=== PATIENT | female | born 1935 | race Caucasian/White ===

== ENCOUNTER → 2017-09-20 | Outpatient (RCR) | payer MEDICARE ==
[~2017-09-20] MED LIST: ALPRAZOLAM0.25 MG; AMLODIPINE BESY10 MG; AMLODIPINE BESYL5 MG PO; ASPIRIN81 MG PO; ATORVASTATIN CA20 MG PO; BENICAR; BENICAR20 MG PO; BYSTOLIC10 MG; BYSTOLIC10 MG PO; CARVEDILOL12.5 MG PO; CIPRO500 MG PO; CLOPIDOGREL75 MG PO; GLIMEPIRIDE4 MG; GLIMEPIRIDE4 MG PO; HYDROCHLOROTHIA25 MG; LANTUS100 UNITS/; METFORMIN HCL500 MG; UNISOM SLEEP AI25 MG; clonidine
== END ==
LOC: PT 09-13 09:52
PROVIDERS: ATTEND Psychiatry & Neurology Neurology
DX: M54.81 Occipital neuralgia (principal); M53.82 Other specified dorsopathies, cervical region; M62.81 Muscle weakness (generalized); R53.81 Other malaise
CPT/HCPCS: 97110 ×3; 97161; G8978; G8979

== ENCOUNTER → 2017-10-18 | Outpatient (RCR) | payer MEDICARE | LOC: PT 09-22 09:52 | PROVIDERS: ATTEND Psychiatry & Neurology Neurology | DX: M54.81 Occipital neuralgia (principal) | CPT/HCPCS: 97110 ×9; 97139; G8978; G8979 ==

== ENCOUNTER 2017-10-26 13:52 | Outpatient (RCR) | payer MEDICARE ==
[~2017-10-26 13:52] MED LIST changes: -LANTUS100 UNITS/; +LANTUS100 UNITS/ SQ
[2017-12-29] MEDS ORDERED: CARVEDILOL12.5 MG PO (09:13)
[2017-12-29] MEDS ORDERED: CLONIDINE HCL0.1 MG PO (09:14)
[2017-12-29] MEDS ORDERED: UNISOM PO (09:15)
[2017-12-29] MEDS ORDERED: UNISOM SLEEP AI25 MG (09:15)
[2017-12-29] MEDS ORDERED: PRESERVISION A1 EACH PO (09:16)
[2017-12-29] MEDS ORDERED: CENTRUM SILVER1 EAC3 PO (09:16)
== END 2017-11-18 ==
LOC: PT 13:52
PROVIDERS: ATTEND Psychiatry & Neurology Neurology
DX: M54.81 Occipital neuralgia (principal); R53.81 Other malaise; M62.81 Muscle weakness (generalized); R26.2 Difficulty in walking, not elsewhere classified; M53.82 Other specified dorsopathies, cervical region
CPT/HCPCS: 97139

== ENCOUNTER → 2017-11-14 | Outpatient (CLI) | payer MEDICARE ==
[~2017-11-14] MED LIST changes: +LANTUS100 UNITS/; -LANTUS100 UNITS/ SQ
--- NOTE | 2017-11-14 15:11 | Diagnostic Imaging Report ---
Exam: Brain MRI without IV contrast History: Vertigo, dizziness Comparison studies: None Technique: Sagittal and axial T2, axial DWI, axial coronal T2 flair, axial T2*GRE and axial T1 FLAIR. Intravenous contrast: None Findings: Scalp: Normal in signal. No masses. Bone marrow: Normal in signal intensity. Brain sulci: Appropriate for age. Ventricles: Normal in size. No hydrocephalus. Extra-axial spaces: No mass, no fluid collection. Parenchyma: No mass, hemorrhage or acute ischemia. Scattered discrete and mildly confluent-appearing periventricular T2 FLAIR hyperintense signal changes in the supratentorial white matter are nonspecific but most compatible with chronic small vessel ischemic changes (Fazekas Grade 2). Suprasellar region: No abnormalities. Craniocervical junction: Patent foramen magnum. No Chiari malformation. Vessels: Absence of the normal signal void within the left V3 and mid and proximal intradural V4 segments of the left vertebral artery. Additionally there is increased T1 and T2 FLAIR signal within the vertebral artery at the level of the left C1 transverse foramen. Findings may be secondary to flow-related artifact within a hypoplastic vessel, related to flow-limiting stenosis or reflect vessel occlusion. Normal flow-voids in the remaining major intracranial arteries and sinuses. IMPRESSION: 1. Mild to moderate supratentorial chronic microvascular ischemic changes. 2. 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 Cervical and intracranial CTA or MRA could further evaluate. 3. No additional intracranial abnormalities. Signed by: Dr. Doug Pavon M.D. on 11/14/2017 3:07 PM
== END ==
LOC: MRI 13:21
PROVIDERS: ATTEND Internal Medicine
DX: H81.49 Vertigo of central origin, unspecified ear (principal)
CPT/HCPCS: 70551

== ENCOUNTER → 2017-11-22 | Outpatient (CLI) | payer MEDICARE ==
[~2017-11-22] MED LIST changes: +CENTRUM SILVER1 EAC3 PO; +CLONIDINE HCL0.1 MG PO; -LANTUS100 UNITS/; +LANTUS100 UNITS/ SQ; +PRESERVISION A1 EACH PO; +UNISOM PO
--- NOTE | 2017-11-22 12:22 | Diagnostic Imaging Report ---
Exam: Intracranial MRA: History: Dizziness, vertigo Technique: Axial 3-D [id number] with coronal, sagittal and 3-D MIP reformats. Comparison studies: Brain MRI 11/14/2017. Findings: Internal carotid arteries: Patent. No flow signal abnormalities. Anterior cerebral arteries: Patent, no flow signal abnormalities in the A1 and proximal A2 segments. Middle cerebral arteries: Patent, no flow signal abnormalities in the M1 and proximal M2 segments. Included intradural V4 segments of the vertebral arteries: Patent, no flow signal abnormalities on the right. The nondominant intradural V4 segment of the left vertebral artery is visualized distal to the left PICA but is not visualized more proximally. Anatomical variants: Acom: Visualized. Pcoms: Visualized bilaterally. Vertebral arteries: Right is dominant. IMPRESSION: 1. Intradural V4 segment of the left vertebral artery is patent distal to the PICA but not visualized more proximally. Cannot further evaluate on this exam. Cervical CTA or MRA could further evaluate for the possibility of a more proximal vessel occlusion. 2. No additional intracranial MR abnormalities. Signed by: Dr. Doug Pavon M.D. on 11/22/2017 12:18 PM
== END ==
LOC: MRI 10:25
PROVIDERS: ATTEND Internal Medicine
DX: H81.49 Vertigo of central origin, unspecified ear (principal)
CPT/HCPCS: 70544

== ENCOUNTER → 2017-12-01 | Outpatient (CLI) | payer MEDICARE ==
[~2017-12-01] MED LIST changes: -CENTRUM SILVER1 EAC3 PO; -CLONIDINE HCL0.1 MG PO; +LANTUS100 UNITS/; -LANTUS100 UNITS/ SQ; -PRESERVISION A1 EACH PO; -UNISOM PO
--- NOTE | 2017-12-01 16:31 | Diagnostic Imaging Report ---
#[id number] - USBRECOMRT ULTRASOUND OF THE RIGHT BREAST : 12/01/2017 Comparison is made to exams dated: 12/01/2017 mammogram - [facility], 10/27/2017 mammogram, 10/27/2017 ultrasound biopsy, 10/23/2017 mammogram and 10/23/2017 [place] [facility] [place] Color flow and real-time ultrasound were performed on the entire right breast breast with scanning in all four quadrants, retroareolar region and the right axilla. -At 11 o'clock 5 cm from the nipple is a shadowing mass measuring 2.0 x 1.1 x 1.2 cm compatible with the known biopsy proven breast cancer -At 11 o'clock 2 cm from the nipple is a hypoechoic nodule measuring 8 mm -At 12 o'clock 1 cm from the nipple is a hypoechoic nodule measuring 6 mm -At 7 o'clock 1 cm from the nipple is a cyst measuring 4 mm -There are scattered dilated ducts present. IMPRESSION: KNOWN BIOPSY PROVEN MALIGNANCY Follow-up with ACR/ACS guidelines. Known biopsy proven breast cancer with a shadowing mass at 11 o'clock. Usman Lopez Jr., D.O. cw/:12/01/2017 15:10:54 Edging Supervisor: COCO MASON, [facility] Ultrasound BI-RADS: 6 Known biopsy proven malignancy
--- NOTE | 2017-12-01 16:31 | Diagnostic Imaging Report ---
#[id number] - USBRECOMLT ULTRASOUND OF THE LEFT BREAST : 12/01/2017 Comparison is made to exams dated: 12/01/2017 mammogram - [facility], 10/27/2017 mammogram, 10/27/2017 ultrasound biopsy, 10/23/2017 mammogram and 10/23/2017 ultrasound - [facility] [place]. Color flow and real-time ultrasound were performed on the entire left breast with scanning in all four quadrants, retroareolar region and the left axilla. -At 4 o'clock 1 cm from the nipple is a cyst measuring 5 mm -At 7 o'clock 1 cm from the nipple is a cyst measuring 4 mm -Scattered dilated ducts are present. IMPRESSION: BENIGN There is no sonographic evidence of malignancy. A 1 year screening mammogram is recommended. Usman Lopez Jr., D.O. cw/:12/01/2017 15:14:13 Customer Service Supervisor: COCO MASON, [facility] letter sent: Normal Exam Ultrasound BI-RADS: 2 Benign
--- NOTE | 2017-12-01 16:31 | Diagnostic Imaging Report ---
#[id number] - MGDXBIL #BILATERAL DIGITAL DIAGNOSTIC MAMMOGRAM WITH CAD: 12/01/2017 Comparison is made to exams dated: 10/27/2017 mammogram, 10/27/2017 ultrasound biopsy, 10/23/2017 mammogram and 10/23/2017 ultrasound - [facility]. Current study contains 6 films. The tissue of both breasts is predominantly fatty. Current study was also evaluated with a Computer Aided Detection (CAD) system. There is a 1.6 cm mass in the right breast at 11 o'clock anterior depth compatible with known biopsy proven breast cancer. A biopsy clip is noted near the mass. Vascular calcification and scattered benign appearing calcification in both breasts are present. There is no mass in the left breast. Lymph nodes in both axilla are present. IMPRESSION: KNOWN BIOPSY PROVEN MALIGNANCY The 1.6 cm mass in the right breast is a known biopsy positive for malignancy. The patient desires to have a mastectomy. Usman Lopez Jr., D.O. cw/:12/01/2017 15:20:36 Secondary School Teacher: Za FLORES)(Taniya), [facility] Mammogram BI-RADS: 6 Known biopsy proven malignancy
== END ==
LOC: MAMMO 10:19
PROVIDERS: ATTEND Internal Medicine Medical Oncology
DX: C50.911 Malignant neoplasm of unspecified site of right female breast (principal)
CPT/HCPCS: 77066

== ENCOUNTER 2017-12-07 09:28 | Outpatient (RCR) | payer MEDICARE | END 2017-12-18 | LOC: PT 09:28 | PROVIDERS: ATTEND Internal Medicine | DX: I65.02 Occlusion and stenosis of left vertebral artery (principal) | CPT/HCPCS: 97139 ==

== ENCOUNTER → 2018-01-02 | Outpatient (CLI) | payer MEDICARE ==
[~2018-01-02] MED LIST changes: +BUPIVACAINE 0.25%/EPI 30ML SDV INJ ONE; +CENTRUM SILVER1 EAC3 PO; +CLONIDINE HCL0.1 MG PO; -LANTUS100 UNITS/; +LANTUS100 UNITS/ SQ; +METHYLENE BLUE 1% INJ 10 ML VIAL INJ ONE; +PRESERVISION A1 EACH PO; +UNISOM PO
--- NOTE | 2018-01-02 19:46 | Diagnostic Imaging Report ---
Lymphoscintigraphy - 2-day protocol Reason for Exam: Right breast cancer; scheduled for sentinel lymph node biopsy Radiopharmaceutical: Tc-99m filtered sulfur colloid 1.1 millicuries Report: The radiotracer was given as two separate injections intradermally at the edge of the right areola. A single focal of tracer accumulation is seen in the right axilla. No accumulation of tracer is seen in the midline of the chest or in the neck. Impression: Injection for sentinel lymph node mapping. A single sentinel lymph node is identified in the right axilla. Signed by: Dr. Za Stevenson M.D. on 01/02/2018 7:43 PM
== END ==
LOC: NM 13:45
PROVIDERS: ATTEND Surgery
DX: C50.911 Malignant neoplasm of unspecified site of right female breast (principal)
CPT/HCPCS: 78195; A9541

== ENCOUNTER 2018-01-03 11:15 | Observation (INO) | payer MEDICARE ==
[2017-12-29 09:14] LABS: BASOPHILS # (AUTO) 0.1 (0.0-0.1); BASOPHILS % 1.9 % (0.0-1.0); EOSINOPHILS # (AUTO) 0.2 (0.0-0.4); EOSINOPHILS % 3.6 % (0.0-6.0); HEMATOCRIT 41.4 % (34.2-44.1); HEMOGLOBIN 14.2 g/dL (12.0-16.0); LYMPHOCYTES # (AUTO) 1.9 (1.0-3.2); LYMPHOCYTES % 32.7 % (18.0-39.1); MEAN CORPUSCULAR HEMOGLOBIN 28.9 pg (28-32); MEAN CORPUSCULAR HGB CONC 34.3 g/dL (31-35); MEAN CORPUSCULAR VOLUME 84.3 fL (81-99); MONOCYTES # (AUTO) 1.1 (0.2-0.8); MONOCYTES % 18.5 % (4.4-11.3); NEUTROPHILS # (AUTO) 2.6 (2.1-6.9); NEUTROPHILS % 43.1 % (38.7-80.0); PLATELET COUNT 161 x10e3/uL (140-360); RED BLOOD COUNT 4.91 x10e6/uL (3.6-5.1); RED CELL DISTRIBUTION WIDTH 13.2 % (11.7-14.4)
[2017-12-29 09:29] LABS: BLOOD UREA NITROGEN 11 mg/dL (7-26); BUN/CREATININE RATIO 13 (6-25); CALCIUM 10.4 mg/dL (8.4-10.2); CARBON DIOXIDE 28 mmol/L (22-29); CHLORIDE 104 mmol/L (98-107); CREATININE, SERUM 0.83 mg/dL (0.57-1.11); EST GLOMERULAR FILTRATION RATE > 60 ML/MIN (60-); GLUCOSE 141 mg/dL (74-118); SODIUM 140 mmol/L (136-145)
--- NOTE | 2017-12-29 09:56 | Diagnostic Imaging Report ---
PROCEDURE: Frontal and lateral views of the chest. COMPARISON: None. INDICATIONS: PREOP CXR FINDINGS: Lines/tubes: None. Lungs: No focal consolidation or parenchymal mass. Pleura: There is no pleural effusion or pneumothorax. Heart and mediastinum: The heart and the mediastinum are normal. Atherosclerotic calcifications. Bones: No acute bony abnormality. Degenerative changes of the thoracic spine. IMPRESSION: No acute radiographic abnormality. Dictated by: Jay Hall M.D. on 12/29/2017 at 9:57 Electronically approved by: Jay Hall M.D. on 12/29/2017 at 9:57
[~2018-01-03] VITALS: Ht 170.2 cm; Wt 82.1 kg
[~2018-01-03 11:15] MED LIST changes: +ACETAMINOPHEN 1000 MG/100 ML IV PRN; +HYDROMORPHONE 1MG/1ML INJ IV PRN; +INSULIN REGULAR, HUMAN 100 UNIT/1 ML 3ML VIAL ONE
[2018-01-03] MEDS ORDERED: FENTANYL CITRATE/PF 100MCG/2 ML INJ ONE ×2 (11:23→14:45)
[2018-01-03] MEDS ORDERED: MEPERIDINE HCL INJ 50 MG/ML INJ ONE (11:49)
[2018-01-03] MEDS ORDERED: HYDROMORPHONE 2MG/ML INJ IV PRN ×2 (12:30)
--- OUTSIDE RECORDS SUMMARY | 2018-01-03 12:53 | XMS REPORT ---
Author Author [facility] Address Unknown Phone Unavailable Care Team Providers Care 3D Designer Name Role Phone ELENA CASAREZ Unavailable Unavailable ANTHONY BUENO Unavailable Unavailable ORAHTRISTEN BERGERON Unavailable Unavailable Problems This patient has no known problems. Allergies, Adverse Reactions, Alerts This patient has no known allergies or adverse reactions. Medications This patient has no known medications. Results Test Description Test Time Test Comments Text Results Atomic Results Result Comments NM LYMPHOSCINTIGRAPHY INCL INJ [place] [address] Patient Name: MARKUS JENSEN MR #: [id number] : 1935 Age/Sex: 82/F Req #: [id number] Adm Physician: Ordered by: ELENA CASAREZ MD Report #: [id number] Location: [place] Room/Bed: Procedure: [id number] NM/NM LYMPHOSCINTIGRAPHY INCL INJ Exam Date: Exam Time: REPORT STATUS: Signed Lymphoscintigraphy - 2-day protocol Reason for Exam: Right breast cancer; scheduled for sentinel lymph node biopsy Radiopharmaceutical: Tc-99m filtered sulfur colloid 1.1 millicuries Report: The radiotracer was given as two separate injections intradermally at the edge of the right areola. A single focal of tracer accumulation is seen in the right axilla. No accumulation of tracer is seen in the midline of the chest or in the neck. Impression: Injection for sentinel lymph node mapping. A single sentinel lymph node is identified in the right axilla. Signed by: Dr. Sara Stevenson M.D. on 7:43 PM Dictated By: SARA STEVENSON MD 42 Transcribed By: ODILIA on 01/02/181942 COPY TO: ELENA CASAREZ MD CHEST 2 VIEWS [place] [address] Patient Name: MARKUS JENSEN MR #: [id number] : 1935 Age/Sex: 82/F Req #: [id number] Adm Physician: Ordered by: ELENA CASAREZ MD Report #: [id number] Location: [place] Room/Bed: Procedure: [id number] DX/CHEST 2 VIEWS Exam Date: 12/29/17 Exam Time : 0940 REPORT STATUS: Signed PROCEDURE: Frontal and lateral views of the chest. COMPARISON: None. INDICATIONS: PREOP CXR FINDINGS: Lines/tubes: None. Lungs: No focal consolidation or parenchymal mass. Pleura: There is no pleural effusion or pneumothorax. Heart and mediastinum: The heart and the mediastinum are normal. Atherosclerotic calcifications. Bones: No acute bony abnormality. Degenerative changes of the thoracic spine. IMPRESSION: No acute radiographic abnormality. Dictated by: Roxanne Rocha M.D. on 2017 at 9:57 Electronically approved by: Roxanne Rocha M.D. on 12/29/2017 at 9:57 Dictated By: ROXANNE ROCHA MD 0957 Transcribed By: HUMBLE on 12/29/17 0957 COPY TO: ELENA CASAREZ MD MAMMOGRAPHY DIGITAL DX BILAT [place] [address] Patient Name: MARKUS JENSEN MR #: [id number] : 1935 Age/Sex: 82/F Req #: [id number] Adm Physician: Ordered by: ANTHONY BUENO MD Report #: [id number] Location: MAMMO Room/Bed: Procedure: [id number] MG/MAMMOGRAPHY DIGITAL DX BILAT Exam Date: Exam Time: 1033 REPORT STATUS: Signed #[id number] - MGDXBIL #BILATERAL DIGITAL DIAGNOSTIC MAMMOGRAM WITH CAD: Comparison is made to exams dated: 10/27/2017 mammogram, 10/27/2017 ultrasound biopsy, 10/23/2017 mammogram and 10/23/2017 ultrasound - [facility]. Current study contains 6 films. The tissue of both breasts is predominantly fatty. Current study was also evaluated with a Computer Aided Detection (CAD) system. There is a 1.6 cm mass in the right breast at 11 o'clock anterior depth compatible with known biopsy proven breast cancer. A biopsy clip is noted near the mass. Vascular calcification and scattered benign appearing calcification in both breasts are present. There is no mass in the left breast. Lymph nodes in both axilla are present. IMPRESSION: KNOWN BIOPSY PROVEN MALIGNANCY The 1.6 cm mass in the right breast is a known biopsy positive for malignancy. The patient desires to have a mastectomy. Olamide Lopez Jr., D.O. cw /:12/01/2017 15:20:36 Environmental Services Lead: Sara MENSAH(Ale)(M), [facility] Mammogram BI-RADS: 6 Known biopsy proven malignancy Dictated By: OLAMIDE LOPEZ DO 19 Transcribed By: CHARLIE on 12/01/171519 COPY TO: ANTHONY BUENO MD US BREAST COMPLETE RIGHT [place] [id number] [place] [address] Patient Name: MARKUS JENSEN MR #: [id number] : 1935 Age/Sex: 82/F Req #: [id number] Adm Physician: Ordered by: ANTHONY BUENO MD Report #: [id number] Location: MAMMO Room/Bed: Procedure: [id number] US/US BREAST COMPLETE RIGHT Exam Date: Exam Time: REPORT STATUS: Signed #[id number] - USBRECOMRT ULTRASOUND OF THE RIGHT BREAST : 12/01/2017 Comparison is made to exams dated: 12/01/2017 mammogram - [facility], 10/27/2017 mammogram, 10/27/2017 ultrasound biopsy, 10/23/2017 mammogram and 10/23/2017 ultrasound - [facility]. Color flow and real-time ultrasound were performed on the entire right breast breast with scanning in all four quadrants, retroareolar region and the right axilla. -At 11 o' clock 5 cm from the nipple is a shadowing mass measuring 2.0 x 1.1 x 1.2 cm compatible with the known biopsy proven breast cancer -At 11 o'clock 2 cm from the nipple is a hypoechoic nodule measuring 8 mm -At 12 o'clock 1 cm from the nipple is a hypoechoic nodule measuring 6 mm -At 7 o'clock 1 cm from the nipple is a cyst measuring 4 mm -There are scattered dilated ducts present. IMPRESSION: KNOWN BIOPSY PROVEN MALIGNANCY Follow -up with ACR/ACS guidelines. Known biopsy proven breast cancer with a shadowing mass at 11 o'clock. Olamide Lopez Jr., D.O. cw/:12/01/2017 15: 10:54 Environmental Services Lead: COCO MASON [facility] Ultrasound BI-RADS: 6 Known biopsy proven malignancy Dictated By : OLAMIDE LOPEZ DO 09 Transcribed By: CHARLIE on 12/01/171509 COPY TO: ANTHONY BUENO MD US BREAST COMPLETE LEFT [place] [address] Patient Name: MARKUS JENSEN MR #: [id number] : 1935 Age/Sex: 82/F Req #: [id number] Adm Physician: Ordered by: ANTHONY BUENO MD Report #: [id number] Location: MAMMO Room/Bed: Procedure: [id number] US/US BREAST COMPLETE LEFT Exam Date: Exam Time: REPORT STATUS: Signed #[id number] - USBRECOMLT ULTRASOUND OF THE LEFT BREAST : 12/01/2017 Comparison is made to exams dated: 12/01/2017 mammogram - [facility], 10/27/2017 mammogram, 10/27/2017 ultrasound biopsy, 10/23/2017 mammogram and 10/23/2017 ultrasound - [facility]. Color flow and real-time ultrasound were performed on the entire left breast with scanning in all four quadrants, retroareolar region and the left axilla. -At 4 o'clock 1 cm from the nipple is a cyst measuring 5 mm -At 7 o'clock 1 cm from the nipple is a cyst measuring 4 mm -Scattered dilated ducts are present. IMPRESSION: BENIGN There is no sonographic evidence of malignancy. A 1 year screening mammogram is recommended. Olamide Lopez Jr., D.O. cw/:12/01/2017 15:14:13 Environmental Services Lead: COCO MASON [facility] letter sent: Normal Exam Ultrasound BI-RADS: 2 Benign Dictated By: OLAMIDE LOPEZ DO 13 Transcribed By: CHARLIE on 12/01/171513 COPY TO: ANTHONY BUENO MD MRA HEAD WO [place] [address] Patient Name: MARKUS JENSEN MR #: [id number] : 1935 Age/Sex: 82/F Req #: [id number] Adm Physician: Ordered by: TRISTEN MCCALL MD Report #: [id number] Location: MRI Room/Bed: Procedure: [id number] MRI/MRA HEAD WO Exam Date: Exam Time: REPORT STATUS: Signed Exam: Intracranial MRA: History: Dizziness, vertigo Technique: Axial 3-D [id number]-[id number] with coronal, sagittal and 3-D MIP reformats. Comparison studies: Brain MRI 11/14/2017. Findings: Internal carotid arteries: Patent. No flow signal abnormalities. Anterior cerebral arteries: Patent, no flow signal abnormalities in the A1 and proximal A2 segments. Middle cerebral arteries: Patent, no flow signal abnormalities in the M1 and proximal M2 segments. Included intradural V4 segments of the vertebral arteries: Patent, no flow signal abnormalities on the right. The nondominant intradural V4 segment of the left vertebral artery is visualized distal to the left PICA but is not visualized more proximally. Anatomical variants: Acom: Visualized. Pcoms: Visualized bilaterally. Vertebral arteries: Right is dominant. IMPRESSION: 1. Intradural V4 segment of the left vertebral artery is patent distal to the PICA but not visualized more proximally. Cannot further evaluate on this exam. Cervical CTA or MRA could further evaluate for the possibility of a more proximal vessel occlusion. 2. No additional intracranial MR abnormalities. Signed by: Dr. Priya Pavon M.D. on 2017 12:18 PM Dictated By: PRIYA PAVON MD 17 Transcribed By: ODILIA on 11/22/171217 COPY TO: TRISTEN MCCALL MD MRI BRAIN WO [place] [address] Patient Name: MARKUS JENSEN MR #: [id number] : 1935 Age/Sex: 82/F Req #: [id number] Adm Physician: Ordered by: TRISTEN MCCALL MD Report #: [id number] Location: MRI Room/Bed: Procedure: [id number] MRI/MRI BRAIN WO Exam Date: Exam Time: REPORT STATUS: Signed Exam: Brain MRI without IV contrast History: Vertigo, dizziness Comparison studies: None Technique: Sagittal and axial T2, axial DWI, axial coronal T2 flair, axial T2*GRE and axial T1 FLAIR. Intravenous contrast: None Findings: Scalp: Normal in signal. No masses. Bone marrow: Normal in signal intensity. Brain sulci: Appropriate for age. Ventricles: Normal in size. No hydrocephalus. Extra- axial spaces: No mass, no fluid collection. Parenchyma: No mass, hemorrhage or acute ischemia. Scattered discrete and mildly confluent- appearing periventricular T2 FLAIR hyperintense signal changes in the supratentorial white matter are nonspecific but most compatible with chronic small vessel ischemic changes (Fazekas Grade 2). Suprasellar region: No abnormalities. Craniocervical junction: Patent foramen magnum. No Chiari malformation. Vessels: Absence of the normal signal void within the left V3 and mid and proximal intradural V4 segments of the left vertebral artery. Additionally there is increased T1 and T2 FLAIR signal within the vertebral artery at the level of the left C1 transverse foramen. Findings may be secondary to flow-related artifact within a hypoplastic vessel, related to flow-limiting stenosis or reflect vessel occlusion. Normal flow-voids in the remaining major intracranial arteries and sinuses. IMPRESSION: 1. Mild to moderate supratentorial chronic microvascular ischemic changes. 2. 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 Cervical and intracranial CTA or MRA could further evaluate. 3. No additional intracranial abnormalities. Signed by: Dr. Priya Pavon M.D. on 11/14/2017 3:07 PM Dictated By: PRIYA PAVON MD 6163 Transcribed By: ODILIA on 11/14 2263 COPY TO: TRISTEN MCCALL MD
--- OUTSIDE RECORDS SUMMARY | 2018-01-03 12:53 | XMS REPORT | Continuity of Care Document ---
Author Author [facility] Organization [facility] Address [address] [place] [address] Phone Unavailable Care Team Providers Care Deportation Officer Name Role Phone TRISTEN MCCALL MD PCP Insurance Providers Guarantor Markus Jensen Address [address] [place] [address] Email NONE Payer [facility] Policy Number [id number] Subscriber's Name Markus Jensen Relationship 18 Self / Same As Patient Group Number PLAN [id number] Group Name RETIRED Effective Date 05 Payer Medicare A & B Policy Number [id number] Subscriber's Name Markus Jensen Relationship 18 Self / Same As Patient Group Number [id number] Group Name RETIRED Effective Date 01 Advance Directives Directive Response Recorded Date/Time Does the patient have an advance directive? Yes 12/07/17 9:27am If yes, is advance directive on file with [facility]? No 11/14/17 1:20pm If not on file with [facility] will patient provide a copy? No 11/30/17 4:48pm Do you have a Directive to Physician? Yes 04/19/18 9:27am Do you have a Medical Power of Solar Energy Specialist? Yes 12/07/17 9:27am Do you have an out of hospital Do Not Resuscitate Order? No 11/30/17 4:48pm Do you have any special needs we should be aware of? No 11/30/17 4:48pm Do you have a support person here with you today? No 11/30/17 4:48pm Did patient receive Notice of Privacy Practices? No 11/30/17 4:48pm Did patient receive patient rights and responsibilities? No 11/30/17 4:48pm Problems No problem information available. Medications Current Home Medications Medication Dose Units Route Directions Days Qty Instructions Start Date Alprazolam 0.25 Mg Tablet 0.25 Mg 1/2 as needed Amlodipine Besylate 5 Mg Tablet 5 Mg Oral Daily 30 Tab Aspirin 81 Mg Tab.chew Oral Bedtime Atorvastatin Calcium 20 Mg Tablet 80 Mg Oral Today At 9:00PM Ciprofloxacin Hcl (Cipro) 500 Mg Tablet 250 Mg Oral Every 12 Hours 30 Tab Clopidogrel Bisulfate (Clopidogrel) 75 Mg Tablet 75 Mg Oral Daily 30 Tab Glimepiride 4 Mg Tablet 4 Mg Oral Twice A Day Insulin Glargine (Lantus) 100 Units/Ml Ml 35 Units Bedtime Metformin Hcl 500 Mg Tablet 500 Mg Daily Nebivolol Hcl (Bystolic) 10 Mg Tablet 10 Mg Oral Daily Olmesartan Medoxomil (Benicar) 20 Mg Tablet 20 Mg Oral Daily 30 Tab Past Home Medications Medication Directions Ordered Status Amlodipine Besylate 10 Mg Tablet, 80 Mg Bedtime Discontinued Aspirin 81 Mg Tab.chew, 81 Mg Oral Daily Discontinued Benicar , 10 Mg Daily Discontinued Carvedilol 12.5 Mg Tablet, 12.5 Mg Oral Twice A Day Discontinued Clonidine , as needed Discontinued Doxylamine Succinate (Unisom Sleep Aid) 25 Mg Tablet, 12.5 Bedtime Discontinued Glimepiride 4 Mg Tablet, 4 Mg Twice A Day Discontinued Hydrochlorothiazide 25 Mg Tablet, 12.5 Mg Daily Discontinued Nebivolol Hcl (Bystolic) 10 Mg Tablet, 10 Mg Bedtime Discontinued Social History Social History Problem Response Recorded Date/Time Onset Date Status Hx Psychiatric Problems No 06/14/2016 10:20pm Not Applicable Not Applicable Hx Eating Disorder No 06/14/2016 10:20pm Not Applicable Not Applicable Hx Substance Use Disorder No 06/14/2016 10:20pm Not Applicable Not Applicable Hx Depression No 06/14/2016 10:20pm Not Applicable Not Applicable Hx Alcohol Use No 06/14/2016 10:20pm Not Applicable Not Applicable Hx Substance Use Treatment No 06/14/2016 10:20pm Not Applicable Not Applicable Hx Physical Abuse No 06/14/2016 10:20pm Not Applicable Not Applicable Hospital Discharge Instructions No hospital discharge instruction information available. Plan of Care Prescriptions See Medication Section Functional Status No functional status information available. Allergies, Adverse Reactions, Alerts Allergen Type Severity Reaction Status Last Updated Sulfa (Sulfonamide Antibiotics) Adverse Reaction Severe Active 05/17/16 Hydrocodone Adverse Reaction Intermediate Active 05/17/16 Acetaminophen Adverse Reaction Intermediate Active 05/17/16 Meperidine Adverse Reaction Intermediate Active 05/17/16 Liraglutide Allergy Intermediate Active 05/19/16 Canagliflozin Allergy Intermediate Active 05/19/16 Immunizations No immunization information available. Vital Signs No vital sign information available. Results No relevant diagnostic test, laboratory data and/or discharge summary information available. Procedures Procedure Status Date Provider(s) Magnetic resonance imaging of brain without contrast Active 11/14/17 TRISTEN MCCALL MD Magnetic resonance angiography of head without contrast Active 11/22/17 TRISTEN MCCALL MD Ultrasound of right breast Active 12/01/17 ANTHONY BUENO MD Ultrasound of left breast Active 12/01/17 ANTHONY BUENO MD Encounters Encounter Location Arrival/Admit Date Discharge/Depart Date Attending Provider Discharged [facility]ring [facility] 12/07/17 9:28am 12/18/17 11:59pm TRISTEN MCCALL MD Registered Clinic [facility] 12/01/17 10:19am ANTHONY BUENO MD Registered Clinic [facility] 11/22/17 10:25am TRISTEN MCCALL MD Registered Clinic [facility] 11/14/17 1:21pm TRISTEN MCCALL MD Discharged [facility]ring [facility] 10/24/17 1:56pm 11/18/17 11:59pm KELSEA AUSTIN MD Discharged [facility]ring [facility] 09/22/17 9:52am 10/18/17 11:59pm KELSEA AUSTIN MD Discharged [facility]ring [facility] 09/13/17 9:52am 09/20/17 11:59pm KELSEA AUSTIN MD
[2018-01-03] MEDS: SODIUM CHLORIDE 0.9% 1000ML 1,000 ML IV SCH (13:32)
[2018-01-03] MEDS: INSULIN REGULAR, HUMAN 100 UNIT/1 ML 3ML VIAL SQ SCH ×2 (13:34→18:42)
[2018-01-03 13:55] VITALS: BP 169/74
[2018-01-03] MEDS ORDERED: CEFAZOLIN SOD 1 GM/NS 50ML 50 ML IV SCH (14:00)
--- NOTE | 2018-01-03 14:35 | Operative Report ---
DATE OF PROCEDURE: January 03, 2018 PREOPERATIVE DIAGNOSIS: Carcinoma of the right breast. POSTOPERATIVE DIAGNOSIS: Carcinoma of the right breast. OPERATION PERFORMED: Right total mastectomy with right axillary sentinel node mapping and biopsy. SURGEON: Dr. William Porter. WATER AND GAS HELPER: MASHA Watts. ANESTHESIA: General. COMPLICATIONS: None. ESTIMATED BLOOD LOSS: Minimal. DESCRIPTION OF PROCEDURE: With the patient lying in bed in the supine position under good general anesthesia after having undergone a sentinel node mapping for the right axilla sentinel node, the right breast and axilla were prepped with Betadine solution and draped in the usual manner. An elliptical incision was made to include the nipple areolar complex on the right breast and flaps were then developed in all directions. The borders of the flap were superiorly to clavicle, medially the sternum, inferiorly the rectus sheath and laterally the latissimus dorsi. The breast tissue was then taken off of the pectoralis major muscle including the fascia all the way to the lateral border of pectoralis major muscle and the breast was totally and completely removed and sent for pathological examination without violating any of the planes of the tumor. After this was done using the Neoprobe, the sentinel node was easily localized as had been mapped in the right axilla and this was slowly and carefully from all of the surrounding structures and totally and completely removed ligating all of the bleeders and lymphatics with 2-0 Vicryl and this was sent for pathological examination. The Neoprobe showed the sentinel node counts as 1,300 and there was no residual activity in the right axilla. The whole area was then thoroughly irrigated. Perfect hemostasis was ascertained. A 10 flat Kirill-Leung drain was then brought out through separate stab wound incision and sutured to the skin with 2-0 silk and the wound was then closed with interrupted vertical mattress sutures of 2-0 and 3-0 silk. Dressing was applied. The sponge, lap and needle count was correct. Patient tolerated the procedure well and returned to the recovery room in stable condition. Job#: [id number] JANNIE
[2018-01-03] MEDS ORDERED: MIDAZOLAM HCL 2 MG/2 ML VIAL ONE (14:45)
[2018-01-03] MEDS: CARVEDILOL 12.5 MG TAB PO SCH (17:00)
[2018-01-03] MEDS: OLMESARTAN 20 MG TAB PO SCH (17:00)
[2018-01-03] MEDS: CEFAZOLIN SOD 1 GM VIAL IV SCH (17:33)
[2018-01-03] MEDS: HYDROCODONE/APAP 7.5MG-325MG 1 EA TAB PO PRN ×2 (17:33→22:00)
[2018-01-03 18:04] VITALS: BP 138/65
[2018-01-03] MEDS ORDERED: ONDANSETRON HCL INJ 2 MG/ML VIAL ONE (18:14)
[2018-01-03] MEDS ORDERED: PROPOFOL IV EMULSION 10 MG/ML 20 ML VIAL ONE (18:14)
[2018-01-03] MEDS ORDERED: EPHEDRINE SULFATE INJ 50 MG/10 ML SYR ONE (18:14)
[2018-01-03] MEDS ORDERED: SEVOFLURANE INHAL SOLN 250 ML PEN BTL ONE (18:14)
[2018-01-03] MEDS ORDERED: DEXAMETHASONE SOD PHOS INJ 4 MG/ML VIAL ONE (18:14)
[2018-01-03] MEDS ORDERED: LIDOCAINE HCL 2% LOCAL INJ 5 ML SDV VIAL INJ ONE (18:14)
[2018-01-03 20:00] VITALS: BP 162/72
[2018-01-03 22:33] VITALS: BP 162/72
[2018-01-04] VITALS: BP 145/66
[2018-01-04] MEDS: CEFAZOLIN SOD 1 GM VIAL IV SCH (00:15)
[2018-01-04] MEDS: SODIUM CHLORIDE 0.9% 1000ML 1,000 ML IV SCH ×2 (00:15→11:55)
[2018-01-04 04:00] VITALS: BP 166/74
[2018-01-04] MEDS: HYDROCODONE/APAP 7.5MG-325MG 1 EA TAB PO PRN ×2 (05:08→11:31)
[2018-01-04 07:04] LABS: BASOPHILS # (AUTO) 0.1 (0.0-0.1); BASOPHILS % 0.8 % (0.0-1.0); EOSINOPHILS # (AUTO) 0.2 (0.0-0.4); EOSINOPHILS % 1.7 % (0.0-6.0); HEMATOCRIT 35.1 % (34.2-44.1); HEMOGLOBIN 11.8 g/dL (12.0-16.0); LYMPHOCYTES # (AUTO) 2.1 (1.0-3.2); LYMPHOCYTES % 23.2 % (18.0-39.1); MEAN CORPUSCULAR HGB CONC 33.6 g/dL (31-35); MEAN CORPUSCULAR VOLUME 86.2 fL (81-99); MONOCYTES # (AUTO) 1.7 (0.2-0.8); MONOCYTES % 18.7 % (4.4-11.3); NEUTROPHILS % 55.4 % (38.7-80.0); PLATELET COUNT 143 x10e3/uL (140-360); RED BLOOD COUNT 4.07 x10e6/uL (3.6-5.1); RED CELL DISTRIBUTION WIDTH 13.3 % (11.7-14.4)
[2018-01-04] MEDS: INSULIN REGULAR, HUMAN 100 UNIT/1 ML 3ML VIAL SQ SCH ×2 (07:30→11:56)
[2018-01-04 07:36] LABS: ANION GAP 9.1 mmol/L (8-16); BLOOD UREA NITROGEN 12 mg/dL (7-26); BUN/CREATININE RATIO 15 (6-25); CALCIUM 9.1 mg/dL (8.4-10.2); CARBON DIOXIDE 27 mmol/L (22-29); CHLORIDE 106 mmol/L (98-107); CREATININE, SERUM 0.81 mg/dL (0.57-1.11); EST GLOMERULAR FILTRATION RATE > 60 ML/MIN (60-); GLUCOSE 201 mg/dL (74-118); POTASSIUM 4.1 mmol/L (3.5-5.1); SODIUM 138 mmol/L (136-145)
[2018-01-04] MEDS: OLMESARTAN 20 MG TAB PO SCH (07:56)
[2018-01-04] MEDS: CARVEDILOL 12.5 MG TAB PO SCH (07:56)
[2018-01-04 08:03] LABS: ANISOCYTOSIS SLIGHT; EOSINOPHILS % (MANUAL) 2 % (0-7); HYPOCHROMASIA SLIGHT; LYMPHOCYTES % (MANUAL) 11 % (19-48); MICROCYTOSIS SLIGHT; MONOCYTES % (MANUAL) 14 % (3.4-9.0); NEUTROPHILS % (MANUAL) 68 % (40-74); PLATELET ESTIMATE SLIGHTLY DECREASED; PLATELET MORPHOLOGY COMMENT FEW LARGE; RBC MORPHOLOGY COMMENT NORMAL
[2018-01-04 08:04] VITALS: BP 158/69
== END 2018-01-04 13:35 | disposition home or self-care (01) ==
LOC: OR 11:15 → MED/SURG 12:51
PROVIDERS: ADMIT Surgery; ATTEND Surgery
DX: C50.411 Malignant neoplasm of upper-outer quadrant of right female breast (principal); Z17.0 Estrogen receptor positive status [ER+]; I25.10 Atherosclerotic heart disease of native coronary artery without angina pectoris; I10 Essential (primary) hypertension; E78.5 Hyperlipidemia, unspecified; G47.33 Obstructive sleep apnea (adult) (pediatric); J45.909 Unspecified asthma, uncomplicated; E11.9 Type 2 diabetes mellitus without complications; Z79.4 Long term (current) use of insulin; M19.90 Unspecified osteoarthritis, unspecified site; R01.1 Cardiac murmur, unspecified; K21.9 Gastro-esophageal reflux disease without esophagitis; F41.9 Anxiety disorder, unspecified; Z01.812 Encounter for preprocedural laboratory examination; Z01.818 Encounter for other preprocedural examination; Z88.7 Allergy status to serum and vaccine; Z79.02 Long term (current) use of antithrombotics/antiplatelets; Z79.82 Long term (current) use of aspirin; Z95.5 Presence of coronary angioplasty implant and graft
CPT/HCPCS: 19303; 36415 ×3; 38525; 38900; 71046; 80048 ×2; 82948 ×2; 85025 ×2; 88305; 88309; 88342; G0378 ×2; J0690; J1100; J2001; J2175; J2250; J2405; J7030 ×2; 88307

== ENCOUNTER → 2018-12-31 | Outpatient (CLI) | payer MEDICARE ==
[~2018-12-31] MED LIST changes: -ACETAMINOPHEN 1000 MG/100 ML IV PRN; -BUPIVACAINE 0.25%/EPI 30ML SDV INJ ONE; -HYDROMORPHONE 1MG/1ML INJ IV PRN; -INSULIN REGULAR, HUMAN 100 UNIT/1 ML 3ML VIAL ONE; -METHYLENE BLUE 1% INJ 10 ML VIAL INJ ONE
== END ==
LOC: MAMMO 10:46
PROVIDERS: ATTEND Surgery
DX: Z12.31 Encounter for screening mammogram for malignant neoplasm of breast (principal)

== ENCOUNTER → 2020-02-11 | Outpatient (CLI) | payer MEDICARE | LOC: MAMMO 12:20 | PROVIDERS: ATTEND Surgery | DX: Z12.31 Encounter for screening mammogram for malignant neoplasm of breast (principal) ==

== ENCOUNTER 2022-07-08 21:54 | Inpatient (IN) | payer MEDICARE ==
[~2022-07-08] VITALS: Ht 171.4 cm; Wt 78.5 kg
[2022-07-08 23:18] VITALS: BP 155/68
[2022-07-08] MEDS ORDERED: ARIMIDEX1 MG PO (23:55)
[2022-07-08] MEDS ORDERED: EDARBI40 MG PO (23:55)
[2022-07-08] MEDS ORDERED: LANTUS 3ML100 UNITS/ SQ (23:55)
[2022-07-08 23:57] VITALS: BP 155/68
[2022-07-09] VITALS (7 sets, daily range): BP systolic 141–187; BP diastolic 65–94
[2022-07-09] MEDS ORDERED: CEFTRIAXONE 1 GM VIAL IM ONE (02:15)
[2022-07-09] MEDS ORDERED: ACETAMINOPHEN 325 MG TAB PO PRN (02:15)
[2022-07-09] MEDS ORDERED: POTASSIUM CHLORIDE 20 MEQ TAB CR PO ONE (02:15)
[2022-07-09] MEDS ORDERED: BISACODYL 5 MG TAB EC PO PRN (02:15)
[2022-07-09] MEDS ORDERED: DEXTROSE 50% SYRINGE 50 ML IV PRN (02:15)
[2022-07-09] MEDS ORDERED: BISACODYL 5 MG TAB EC PO ONE (02:15)
[2022-07-09] MEDS ORDERED: CLONIDINE HCL 0.1 MG TAB PO PRN (02:15)
[2022-07-09] MEDS ORDERED: SODIUM CHLORIDE 0.9% 100 ML ONE (03:18)
[2022-07-09] MEDS: ONDANSETRON HCL INJ 2MG/ML 2ML 2 MG/ML VIAL IV PRN ×2 (03:40→14:04)
[2022-07-09] MEDS: HYDROMORPHONE 1MG/1ML INJ IV PRN ×2 (03:40→14:04)
[2022-07-09] MEDS: SODIUM CHLORIDE 0.9% 1000ML 1,000 ML IV SCH ×2 (03:45→12:35)
[2022-07-09 04:12] LABS: CLARITY,URINE CLOUDY (CLEAR); COLOR,URINE YELLOW (YELLOW); KETONES,URINE NEGATIVE (NEGATIVE); LEUKOCYTE ESTERASE ,URINE 1+ (NEGATIVE); NITRITE,URINE POSITIVE (NEGATIVE); PROTEIN,URINE DIPSTICK 2+ (NEGATIVE); URINE UROBILINOGEN 0.2 mg/dL (0.2 - 1)
[2022-07-09 04:18] LABS: BACTERIA,URINE MANY /HPF; EPITHELIAL CELLS,URINE FEW /LPF; RBC,URINE >50 /HPF (0-5); WBC,URINE (MAN) >50 /HPF (0-5)
[2022-07-09 05:23] LABS: BASOPHILS # (AUTO) 0.1 (0.0-0.1); BASOPHILS % 0.2 % (0.0-1.0); HEMATOCRIT 41.5 % (34.2-44.1); LYMPHOCYTES # (AUTO) 2.2 (1.0-3.2); MEAN CORPUSCULAR HEMOGLOBIN 28.9 pg (28-32); MEAN CORPUSCULAR HGB CONC 31.3 g/dL (31-35); MEAN CORPUSCULAR VOLUME 92.2 fL (81-99); MONOCYTES # (AUTO) 4.1 (0.2-0.8); MONOCYTES % 20.4 % (4.4-11.3); NEUTROPHILS # (AUTO) 13.8 (2.1-6.9); NEUTROPHILS % 67.9 % (38.7-80.0); PLATELET COUNT 187 x10e3/uL (140-360); RED CELL DISTRIBUTION WIDTH 13.3 % (11.7-14.4)
[2022-07-09 05:48] LABS: ALBUMIN 3.4 g/dL (3.5-5.0); CREATININE, SERUM 0.89 mg/dL (0.57-1.11)
[2022-07-09] MEDS: INSULIN REGULAR, HUMAN 100 UNIT/1 ML SQ SCH ×4 (07:30→21:41)
[2022-07-09] MEDS: ANASTROZOLE 1 MG TAB PO SCH (09:00)
[2022-07-09] MEDS ORDERED: CARVEDILOL 12.5 MG TAB PO SCH (09:00)
[2022-07-09] MEDS ORDERED: ENOXAPARIN 30 MG/0.3 ML SYR SC SCH (09:00)
[2022-07-09] MEDS ORDERED: CEFTRIAXONE 1 GM VIAL IM SCH (11:00)
[2022-07-09 11:46] LABS: LYMPHOCYTES % (MANUAL) 7 % (19-48); MONOCYTES % (MANUAL) 17 % (3.4-9.0); NEUTROPHILS % (MANUAL) 71 % (40-74); PLATELET ESTIMATE ADEQUATE; PLATELET MORPHOLOGY COMMENT NORMAL; RBC MORPHOLOGY COMMENT NORMAL
[2022-07-09] MEDS ORDERED: FUROSEMIDE INJ 10 MG/ML 4 ML VIAL IV ONE (21:00)
[2022-07-09] MEDS: CARVEDILOL 12.5 MG TAB PO SCH (21:00)
[2022-07-09] MEDS: INSULIN GLARGINE 100 UNITS/ML VIAL SQ SCH (22:57)
[2022-07-10] VITALS (7 sets, daily range): BP systolic 153–187; BP diastolic 64–84
[2022-07-10 05:38] LABS: BASOPHILS # (AUTO) 0.1 (0.0-0.1); BASOPHILS % 0.4 % (0.0-1.0); EOSINOPHILS # (AUTO) 0.1 (0.0-0.4); EOSINOPHILS % 0.3 % (0.0-6.0); HEMATOCRIT 37.8 % (34.2-44.1); HEMOGLOBIN 11.7 g/dL (12.0-16.0); LYMPHOCYTES # (AUTO) 1.8 (1.0-3.2); LYMPHOCYTES % 9.8 % (18.0-39.1); MEAN CORPUSCULAR HEMOGLOBIN 29.5 pg (28-32); MEAN CORPUSCULAR VOLUME 95.2 fL (81-99); MONOCYTES # (AUTO) 3.9 (0.2-0.8); MONOCYTES % 21.4 % (4.4-11.3); NEUTROPHILS # (AUTO) 12.2 (2.1-6.9); NEUTROPHILS % 67.2 % (38.7-80.0); PLATELET COUNT 147 x10e3/uL (140-360); RED BLOOD COUNT 3.97 x10e6/uL (3.6-5.1); RED CELL DISTRIBUTION WIDTH 13.1 % (11.7-14.4)
[2022-07-10 05:54] LABS: ALBUMIN/GLOBULIN RATIO 0.9 (0.8-2.0); ANION GAP 12.5 mmol/L (8-16); CALCIUM 9.4 mg/dL (8.4-10.2); CREATININE, SERUM 0.84 mg/dL (0.57-1.11); POTASSIUM 4.5 mmol/L (3.5-5.1)
[2022-07-10] MEDS ORDERED: INSULIN GLARGINE 100 UNITS/ML VIAL SQ SCH (06:00)
[2022-07-10] MEDS: INSULIN GLARGINE 100 UNITS/ML VIAL SQ SCH ×2 (06:00→20:26)
[2022-07-10] MEDS: ONDANSETRON HCL INJ 2MG/ML 2ML 2 MG/ML VIAL IV PRN ×3 (07:25→20:10)
[2022-07-10] MEDS: HYDROMORPHONE 1MG/1ML INJ IV PRN ×3 (07:26→20:11)
[2022-07-10] MEDS: INSULIN REGULAR, HUMAN 100 UNIT/1 ML SQ SCH ×4 (08:30→20:25)
[2022-07-10] MEDS: CARVEDILOL 12.5 MG TAB PO SCH ×2 (09:00→20:17)
[2022-07-10] MEDS: ANASTROZOLE 1 MG TAB PO SCH (09:00)
[2022-07-10] MEDS ORDERED: FUROSEMIDE INJ 10 MG/ML 4 ML VIAL IV ONE (11:00)
[2022-07-10 12:19] LABS: PLATELET ESTIMATE ADEQUATE; PLATELET MORPHOLOGY COMMENT NORMAL
[2022-07-10] MEDS ORDERED: ENOXAPARIN 30 MG/0.3 ML SYR SC SCH (17:00)
[2022-07-11] VITALS (9 sets, daily range): BP systolic 142–175; BP diastolic 56–78
[2022-07-11] MEDS: INSULIN GLARGINE 100 UNITS/ML VIAL SQ SCH ×2 (04:50→21:00)
[2022-07-11 05:17] LABS: BASOPHILS # (AUTO) 0.1 (0.0-0.1); BASOPHILS % 0.6 % (0.0-1.0); EOSINOPHILS # (AUTO) 0.1 (0.0-0.4); EOSINOPHILS % 0.7 % (0.0-6.0); HEMATOCRIT 36.7 % (34.2-44.1); HEMOGLOBIN 11.4 g/dL (12.0-16.0); LYMPHOCYTES # (AUTO) 1.8 (1.0-3.2); LYMPHOCYTES % 13.9 % (18.0-39.1); MEAN CORPUSCULAR HEMOGLOBIN 29.3 pg (28-32); MEAN CORPUSCULAR HGB CONC 31.1 g/dL (31-35); MEAN CORPUSCULAR VOLUME 94.3 fL (81-99); MONOCYTES # (AUTO) 2.7 (0.2-0.8); MONOCYTES % 20.7 % (4.4-11.3); NEUTROPHILS # (AUTO) 8.2 (2.1-6.9); NEUTROPHILS % 62.9 % (38.7-80.0); PLATELET COUNT 136 x10e3/uL (140-360); RED BLOOD COUNT 3.89 x10e6/uL (3.6-5.1); RED CELL DISTRIBUTION WIDTH 12.9 % (11.7-14.4)
[2022-07-11 05:43] LABS: ALBUMIN 2.7 g/dL (3.5-5.0); ALBUMIN/GLOBULIN RATIO 0.8 (0.8-2.0); ANION GAP 12.1 mmol/L (8-16); CALCIUM 9.2 mg/dL (8.4-10.2); CREATININE, SERUM 0.83 mg/dL (0.57-1.11); POTASSIUM 4.1 mmol/L (3.5-5.1)
[2022-07-11] MEDS: HYDROMORPHONE 1MG/1ML INJ IV PRN (06:16)
[2022-07-11] MEDS: ONDANSETRON HCL INJ 2MG/ML 2ML 2 MG/ML VIAL IV PRN ×2 (06:20→15:29)
[2022-07-11] MEDS: INSULIN REGULAR, HUMAN 100 UNIT/1 ML SQ SCH ×4 (07:30→21:00)
[2022-07-11 07:50] LABS: LYMPHOCYTES % (MANUAL) 8 % (19-48); METAMYELOCYTES % (MANUAL) 1 % (0-0); MONOCYTES % (MANUAL) 7 % (3.4-9.0); MYELOCYTES % (MANUAL) 1 % (0-0); NEUTROPHILS % (MANUAL) 79 % (40-74); PLATELET ESTIMATE SLIGHTLY DECREASED; PLATELET MORPHOLOGY COMMENT NORMAL; RBC MORPHOLOGY COMMENT NORMAL
[2022-07-11] MEDS: CARVEDILOL 12.5 MG TAB PO SCH ×2 (09:00→21:54)
[2022-07-11] MEDS: ANASTROZOLE 1 MG TAB PO SCH (09:00)
[2022-07-11] MEDS ORDERED: TRANEXAMIC ACID 20 ML ONE (10:32)
[2022-07-11] MEDS ORDERED: SODIUM CHLORIDE 0.9% 500ML 500 ML ONE ×2 (10:32→10:54)
[2022-07-11] MEDS ORDERED: SODIUM CHLORIDE 0.9% 250ML 250 ML ONE (10:32)
[2022-07-11] MEDS ORDERED: Vancomycin IV 1,000 MG ONE (10:32)
[2022-07-11] MEDS: ROPIVACAINE 246.25 MG, EPINEPHRINE HCL 1:1000 1ML 0.5 MG, CLONIDINE HCL 0.08 MG, KETORO... INJ ONE ×10 (12:00→13:23)
[2022-07-11] MEDS ORDERED: HYDROCODONE/APAP 5MG-325MG TAB PO PRN (12:30)
[2022-07-11] MEDS ORDERED: DOCUSATE SODIUM 100 MG CAP PO PRN (12:30)
[2022-07-11] MEDS ORDERED: DIPHENHYDRAMINE HCL INJ 50 MG/ML VIAL IV PRN (12:30)
[2022-07-11] MEDS ORDERED: ACETAMINOPHEN 650 MG SUPP PR PRN (12:30)
[2022-07-11] MEDS: ONDANSETRON HCL INJ 2MG/ML 2ML 2 MG/ML VIAL ONE ×2 (12:46→13:20)
[2022-07-11] MEDS: METOCLOPRAMIDE HCL 10 MG/2ML VIAL ONE ×2 (13:00→13:20)
[2022-07-11] MEDS: SODIUM CHLORIDE 0.9% 1000ML 1,000 ML IV SCH ×2 (13:20→22:50)
[2022-07-11] MEDS: HYDROCODONE/APAP 7.5MG-325MG 1 EA TAB PO PRN (16:27)
[2022-07-11] MEDS ORDERED: SEVOFLURANE INHAL SOLN 250 ML PEN BTL ONE (17:00)
[2022-07-11] MEDS ORDERED: SUCCINYLCHOLINE CHLORIDE 20 MG/ML 10ML VIAL ONE (17:00)
[2022-07-11] MEDS ORDERED: ROCURONIUM BROMIDE 10 MG/ML 5ML VIAL IV ONE (17:00)
[2022-07-11] MEDS ORDERED: POVIDONE IODINE 0.05% 0.05 % ML PO ONE (17:00)
[2022-07-11] MEDS ORDERED: ETOMIDATE 2 MG/ML 10 ML INJ IV ONE (17:00)
[2022-07-11] MEDS ORDERED: ASPIRIN 325 MG TAB PO SCH (17:00)
[2022-07-11] MEDS ORDERED: ONDANSETRON HCL INJ 2MG/ML 2ML 2 MG/ML VIAL ONE (17:00)
[2022-07-11] MEDS ORDERED: LIDOCAINE HCL 2% LOCAL INJ 5 ML SDV VIAL INJ ONE (17:00)
[2022-07-11] MEDS ORDERED: NEOSTIGMINE 1 MG/ML 10ML VIAL ONE (17:00)
[2022-07-11] MEDS ORDERED: GLYCOPYRROLATE INJ 0.2 MG/ML VIAL ONE (17:00)
[2022-07-11] MEDS ORDERED: CELECOXIB 100 MG CAP PO SCH (17:00)
[2022-07-11] MEDS ORDERED: FENTANYL CITRATE/PF 100MCG/2 ML INJ ONE (17:14)
[2022-07-12] VITALS: BP 140/54
[2022-07-12] MEDS: HYDROCODONE/APAP 7.5MG-325MG 1 EA TAB PO PRN (01:31)
[2022-07-12] MEDS: ONDANSETRON HCL INJ 2MG/ML 2ML 2 MG/ML VIAL IV PRN ×2 (01:32→08:25)
[2022-07-12 04:00] VITALS: BP 137/57
[2022-07-12] MEDS: INSULIN GLARGINE 100 UNITS/ML VIAL SQ SCH (04:14)
[2022-07-12 05:04] LABS: HEMATOCRIT 34.3 % (34.2-44.1); HEMOGLOBIN 10.6 g/dL (12.0-16.0)
[2022-07-12 07:06] LABS: BASOPHILS # (AUTO) 0.2 (0.0-0.1); BASOPHILS % 1.1 % (0.0-1.0); EOSINOPHILS # (AUTO) 0.2 (0.0-0.4); EOSINOPHILS % 1.6 % (0.0-6.0); HEMATOCRIT 34.5 % (34.2-44.1); HEMOGLOBIN 10.6 g/dL (12.0-16.0); LYMPHOCYTES # (AUTO) 1.5 (1.0-3.2); LYMPHOCYTES % 10.6 % (18.0-39.1); MEAN CORPUSCULAR HEMOGLOBIN 29.3 pg (28-32); MEAN CORPUSCULAR HGB CONC 30.7 g/dL (31-35); MEAN CORPUSCULAR VOLUME 95.3 fL (81-99); MONOCYTES # (AUTO) 3.4 (0.2-0.8); MONOCYTES % 23.9 % (4.4-11.3); NEUTROPHILS # (AUTO) 8.7 (2.1-6.9); NEUTROPHILS % 61.9 % (38.7-80.0); PLATELET COUNT 131 x10e3/uL (140-360); RED BLOOD COUNT 3.62 x10e6/uL (3.6-5.1); RED CELL DISTRIBUTION WIDTH 12.9 % (11.7-14.4)
[2022-07-12 07:21] LABS: ANION GAP 13.3 mmol/L (8-16); CREATININE, SERUM 0.88 mg/dL (0.57-1.11); POTASSIUM 4.3 mmol/L (3.5-5.1)
[2022-07-12] MEDS: INSULIN REGULAR, HUMAN 100 UNIT/1 ML SQ SCH ×2 (08:15→11:50)
[2022-07-12 08:18] VITALS: BP 152/63
[2022-07-12] MEDS: HYDROMORPHONE 1MG/1ML INJ IV PRN (08:26)
[2022-07-12] MEDS: SODIUM CHLORIDE 0.9% 1000ML 1,000 ML IV SCH (08:30)
[2022-07-12] MEDS: ANASTROZOLE 1 MG TAB PO SCH (08:31)
[2022-07-12] MEDS: CARVEDILOL 12.5 MG TAB PO SCH (08:32)
[2022-07-12] MEDS ORDERED: CELECOXIB 200 MG CAP PO SCH (09:00)
[2022-07-12] MEDS ORDERED: AZELASTINE HCL 137 MCG NASAL SPRAY NS SCH (09:00)
[2022-07-12 09:14] VITALS: BP 152/63
[2022-07-12] MEDS ORDERED: FUROSEMIDE INJ 10 MG/ML 4 ML VIAL IV ONE (09:30)
[2022-07-12] MEDS ORDERED: ACETAMINOPHEN 1000 MG/100 ML IV PRN (12:30)
[2022-07-12 12:48] VITALS: BP 138/58
[2022-07-12] MEDS ORDERED: ENOXAPARIN 30 MG/0.3 ML SYR SC SCH (17:00)
== END 2022-07-12 15:22 | DRG 521 ==
LOC: MED/SURG 23:14
PROVIDERS: ADMIT Internal Medicine; ATTEND Internal Medicine
PROC: 0SRB04A Replacement of Left Hip Joint with Ceramic on Polyethylene Synthetic Substitute, Uncemented, Open Approach (ICD-10-PCS; principal; 2022-07-11 10:49)
DX: S72.012A Unspecified intracapsular fracture of left femur, initial encounter for closed fracture (principal); I50.33 Acute on chronic diastolic (congestive) heart failure; J18.9 Pneumonia, unspecified organism; M62.82 Rhabdomyolysis; N39.0 Urinary tract infection, site not specified; I11.0 Hypertensive heart disease with heart failure; E11.9 Type 2 diabetes mellitus without complications; B96.20 Unspecified Escherichia coli [E. coli] as the cause of diseases classified elsewhere; Z88.7 Allergy status to serum and vaccine; Z88.8 Allergy status to other drugs, medicaments and biological substances; W18.30XA Fall on same level, unspecified, initial encounter; I25.10 Atherosclerotic heart disease of native coronary artery without angina pectoris; Z95.5 Presence of coronary angioplasty implant and graft; Z85.3 Personal history of malignant neoplasm of breast; Z79.4 Long term (current) use of insulin; Z90.11 Acquired absence of right breast and nipple; Z90.49 Acquired absence of other specified parts of digestive tract; Z66 Do not resuscitate
CPT/HCPCS: 36415; 71045; 72170; 80048; 80053; 81001; 82550; 82948; 83605; 83880; 85014; 85018; 85025; 86850; 86900; 87086; 87186; 94799; C1713; C1776; J0171; J0330; J0690; J0696; J1170; J1650; J1815; J1817; J1885; J1940; J2001; J2405; J2710; J2765; J2795; J3010; J3370; J7030; J7040; J7050